=== PATIENT | male | born 1995 | race Caucasian/White ===

== ENCOUNTER 2017-10-06 06:14 | Emergency (ER) | payer BC ==
[~2017-10-06] VITALS: Ht 193 cm; Wt 95.5 kg
[2017-10-06 06:16] VITALS: BP 128/59; TEMP 97.9
[2017-10-06 07:05] LABS: STREP SCREEN NEGATIVE
[2017-10-06 07:09] LABS: INFLUENZA A NEGATIVE; INFLUENZA B NEGATIVE
[2017-10-06] MEDS ORDERED: AMOXICILLIN 8751 TAB PO (07:24)
[2017-10-06 07:35] VITALS: PULSE 108
== END 2017-10-06 07:35 | disposition home or self-care (01) ==
LOC: COL.ER 06:14
PROVIDERS: Emergency Medicine
DX: J02.9 Acute pharyngitis, unspecified (principal); H92.02 Otalgia, left ear